=== PATIENT | male | born 1965 | race Caucasian/White ===

== ENCOUNTER 2022-09-17 20:59 | Emergency (ER) | payer MEDICAID ==
[~2022-09-17] VITALS: Ht 157.5 cm; Wt 90.3 kg
[2022-09-17 21:24] VITALS: BP 154/91
--- NOTE | 2022-09-18 00:50 | NUR ---
PT TO BED 7, EXAMINING PT
--- NOTE | 2022-09-18 00:52 | NUR ---
ASSUMED CARE , HERE FOR SOB, COUGH CONGESTION HAD SYNCOPAL EPISODE, PT A/OX4, DR RIOS AT TO EXAMINE
[2022-09-18] MEDS ORDERED: METH4TAB1 PO (00:59)
[2022-09-18] MEDS ORDERED: AMOX1TAB8 PO (00:59)
[2022-09-18 01:05] VITALS: BP 154/91
--- NOTE | 2022-09-18 01:05 | NUR ---
Patient discharged with v/s stable. Written and verbal after care instructions given and explained. Patient alert, oriented and verbalized understanding of instructions. Ambulatory with steady gait. All questions addressed prior to discharge. ID band removed. Patient advised to follow up with PMD. Rx of MEDROL DOSE PACK, AMOX CLAV given. Patient educated on indication of medication including possible reaction and side effects. Opportunity to ask questions provided and answered.
== END 2022-09-18 01:05 | disposition home or self-care (01) ==
LOC: MED 20:59
DX: J20.9 Acute bronchitis, unspecified (principal); Z79.899 Other long term (current) drug therapy
CPT/HCPCS: 99283